=== PATIENT | female | born 1960 | race Caucasian/White ===

== ENCOUNTER → 2018-08-22 | Outpatient (CLI) | payer OTHER ==
--- NOTE | 2018-09-18 09:47 | RAD ---
DATE: 08/22/2018 EXAM: DIGITAL SCREEN BILAT W/CAD HISTORY: Routine screening COMPARISON: None available This study was interpreted with the benefit of Computerized Aided Detection (CAD). Breast Density: HETERO The breast parenchyma is heterogenously dense, which could reduce sensitivity of mammography. Breast parenchyma level C. FINDINGS: The fibroglandular tissues are quite heterogeneous. No spiculated mass or architectural distortion is seen. No suspicious microcalcifications are evident. IMPRESSION: There is no mammographic evidence of malignancy in either breast. BI-RADS CATEGORY: 1 NEGATIVE RECOMMENDED FOLLOW-UP: 12M 12 MONTH FOLLOW-UP PQRS compliance statement: Patient information was entered into a reminder system with a target due date for the next mammogram. Mammography is a sensitive method for finding small breast cancers, but it does not detect them all and is not a substitute for careful clinical examination. A negative mammogram does not negate a clinically suspicious finding and should not result in delay in biopsying a clinically suspicious abnormality. "Our facility is accredited by the [employer] Mammography Program."
== END | disposition home or self-care (01) ==
LOC: MAMMO 09:20
DX: Z12.31 Encounter for screening mammogram for malignant neoplasm of breast (principal)
CPT/HCPCS: 77067

== ENCOUNTER 2019-05-15 14:24 | Emergency (ER) | payer OTHER ==
[~2019-05-15] VITALS: Ht 162.6 cm; Wt 56.7 kg
[2019-05-15 14:25] VITALS: BP 123/73
--- NOTE | 2019-05-15 14:59 | PHYS DOC ---
Past History Past Medical History: Other Past Surgical History: Appendectomy, Spleenectomy, Other Alcohol Use: Occasionally Drug Use: None Adult General Chief Complaint Chief Complaint: CHEST PAIN HPI HPI 58-year-old female presents with chest pain, back pain, and generalized aches. She tells me that she has felt like this on and off for the last 10 days. The central chest pressure is mild in nature, but is new today. The patient has had an IL in the past. Her last stress test was about 2 years ago. She is not aware of any vessels that they are monitoring. She denies shortness of breath or diaphoresis. She has cramping back pain on top of her chronic back pain. She was feeling dizzy at home which she described as feeling off balance. This is also new for the patient. All of the symptoms may the patient anxious so she drank half a beer. She denies being a daily drinker. She has no sick contacts. She denies fever but has had chills. Review of Systems Review of Systems Constitutional: chills [] Eyes: Denies change in visual acuity, redness, or eye pain [] HENT: Denies nasal congestion or sore throat [] Respiratory: Denies cough or shortness of breath [] Cardiovascular: No additional information not addressed in HPI [] GI: Denies abdominal pain, nausea, vomiting, bloody stools or diarrhea [] : Denies dysuria or hematuria [] Musculoskeletal: Back pain and joint pain [] Integument: Denies rash or skin lesions [] Neurologic: Mild headache. Denies focal weakness or sensory changes [] Endocrine: Denies polyuria or polydipsia [] All other systems were reviewed and found to be within normal limits, except as documented in this note. Current Medications Current Medications Current Medications Medications (Trade) Dose Ordered Sig/[facility] Start Time Stop Time Status Last Admin Dose Admin Aspirin (Children'S Aspirin) 324 mg 1X ONCE 05/15/19 15:00 05/15/19 15:01 Allergies Allergies Allergies Coded Allergies Type Severity Reaction Last Updated Verified Penicillins Allergy Intermediate 05/15/19 Yes Physical Exam Physical Exam Constitutional: Well developed, well nourished, no acute distress, non-toxic appearance. [] HENT: Normocephalic, atraumatic, bilateral external ears normal, oropharynx moist, no oral exudates, nose normal. [] Eyes: PERRLA, EOMI, conjunctiva normal, no discharge. [] Neck: Normal range of motion, no tenderness, supple, no stridor. [] Cardiovascular:Heart rate regular rhythm, no murmur [] Lungs & Thorax: Bilateral breath sounds clear to auscultation [] Abdomen: Bowel sounds normal, soft, no tenderness, no masses, no pulsatile masses. [] Skin: Warm, dry, no erythema, no rash. [] Back: No tenderness, no CVA tenderness. [] Extremities: No tenderness, no cyanosis, no clubbing, ROM intact, no edema. [] Neurologic: Alert and oriented X 3, normal motor function, normal sensory function, no focal deficits noted. [] Psychologic: Affect normal, judgement normal, mood anxious. [] Current Patient Data Vital Signs Vital Signs Date Time Temp Pulse Resp B/P (MAP) Pulse Ox O2 Delivery O2 Flow Rate FiO2 05/15/19 14:25 97.9 70 19 100 Room Air EKG EKG Sinus rhythm, rate 72, normal axis, no ST elevations or depressions.[] Radiology/Procedures Radiology/Procedures [] Impressions: EXAM: Chest, single view. HISTORY: Chest pain. COMPARISON: None. FINDINGS: A frontal view of the chest is obtained. There is no infiltrate, effusion or pneumothorax. The heart is normal in size. IMPRESSION: No acute pulmonary finding. Electronically signed by: Yennifer Gleason MD (05/15/2019 3:18 PM) [facility] DICTATED AND SIGNED BY: YENNIFER GLEASON MD DATE: 05/15/19 1518 CC: JOSÉ MIGUEL CORONA DO; CHRISTY FARRELL SWATCH MAKERConradoC ~ Course & Med Decision Making Course & Med Decision Making Pertinent Labs and Imaging studies reviewed. (See chart for details) The patient was complaining asking for pain medicine. I gave her 2 mg of morphine. When the nurse went in to give it to her, she stated that that wasn't very much pain medicine. She requested more pain medicine 10 minutes later. Before I was able to go in to see the patient, she told the nurse that she wanted to leave [facility]. She was told that this could put her at risk given her chest pain, and she did not care. Incidentally, after the patient left her labs came back and were unremarkable. Her troponin was negative. She did leave AMA. [] Dragon Disclaimer Dragon Disclaimer This electronic medical record was generated, in whole or in part, using a voice recognition dictation system. Departure Departure: Impression: Primary Impression: Chest pain Additional Impression: Drug-seeking behavior Disposition: 07 AGAINST MEDICAL ADVICE Referrals: CHRISTY FARRELL SWATCH MAKER-C (PCP) Problem Qualifiers JOSÉ MIGUEL CORONA DO May 15, 2019 14:59
[2019-05-15] MEDS ORDERED: ASPIRIN 81 MG TAB.CHEW PO ONE (15:00)
[2019-05-15 15:02] LABS: BASO % 1 % (0-3); EOS % 0 % (0-3); HEMATOCRIT 35.8 % (36.0-47.0); HEMOGLOBIN 12.5 g/dL (12.0-15.5); LYMPH # 0.8 x10^3/uL (1.0-4.8); LYMPH % 16 % (24-48); MEAN CORPUSCULAR HEMOGLOBIN 34 pg (25-35); MEAN CORPUSCULAR HGB CONC 35 g/dL (31-37); MEAN CORPUSCULAR VOLUME 97 fL (79-100); MONO # 0.4 x10^3/uL (0.0-1.1); MONO % 9 % (0-9); NEUT # 3.4 x10^3uL (1.8-7.7); NEUT % 73 % (31-73); PLATELET COUNT 215 x10^3/uL (140-400); RED BLOOD COUNT 3.71 x10^6/uL (3.50-5.40); RED CELL DISTRIBUTION WIDTH 13.3 % (11.5-14.5); WHITE BLOOD COUNT 4.6 x10^3/uL (4.0-11.0)
[2019-05-15 15:13] LABS: BILIRUBIN,URINE NEG (NEG); CLARITY,URINE CLEAR; COLOR,URINE STRAW; GLUCOSE,URINE NEG (NEG); UROBILINOGEN,URINE 0.2 mg/dL (0.2 mg/dL)
[2019-05-15 15:14] LABS: BACTERIA,URINE 0 /HPF (0-FEW); NITRITE,URINE NEG (NEG); RBC,URINE 0 /HPF (0-2); SQUAMOUS EPITHELIAL CELL,UR MOD /LPF; WBC,URINE RARE /HPF (0-4)
[2019-05-15] MEDS ORDERED: MORPHINE SULFATE 2 MG/ML DISP.SYRIN. IV ONE (15:15)
[2019-05-15] MEDS ORDERED: ONDANSETRON PF 4 MG/2 ML VIAL. IV ONE (15:15)
--- NOTE | 2019-05-15 15:20 | RAD ---
EXAM: Chest, single view. HISTORY: Chest pain. COMPARISON: None. FINDINGS: A frontal view of the chest is obtained. There is no infiltrate, effusion or pneumothorax. The heart is normal in size. IMPRESSION: No acute pulmonary finding. Electronically signed by: Yennifer Gleason MD (05/15/2019 3:18 PM) [place] [id number]
[2019-05-15 15:24] LABS: ALBUMIN 3.9 g/dL (3.4-5.0); ALBUMIN/GLOBULIN RATIO 1.3 (1.0-1.7); CALCIUM 8.9 mg/dL (8.5-10.1); CREATININE 0.6 mg/dL (0.6-1.0); POTASSIUM 3.5 mmol/L (3.5-5.1); TOTAL BILIRUBIN 0.3 mg/dL (0.2-1.0); TOTAL PROTEIN 6.9 g/dL (6.4-8.2)
--- NOTE | 2019-05-15 18:01 | EKG ---
[address] [address] Test Date: 2019-05-15 Test Time: 14:36:22 Pat Name: MUMTAZ SAUER Department: Room: Gender: F Sample Stitcher: ANDREW : 1960 Requested By: JOSÉ MIGUEL CORONA Order Number: [id number] Reading MD: Measurements Intervals [place] Rate: 72 P: 75 [place]: 150 QRS: 77 QRSD: 82 T: 68 QT: 412 QTc: 453 Interpretive Statements SINUS RHYTHM NO SPECIFIC ECG ABNORMALITIES RI6.01 No previous ECG available for comparison
== END 2019-05-15 16:20 | disposition left against medical advice (07) ==
LOC: ER 14:24
DX: R07.89 Other chest pain (principal); Z76.5 Malingerer [conscious simulation]; G89.29 Other chronic pain; M54.89 Other dorsalgia; R42 Dizziness and giddiness; Z90.89 Acquired absence of other organs; Z90.81 Acquired absence of spleen; Z88.0 Allergy status to penicillin
CPT/HCPCS: 36415; 71045; 80053; 81001; 83690; 83880; 84484; 85025; 93005; 96374; 96375; 99285; J2270; J2405

== ENCOUNTER → 2021-01-05 | Outpatient (CLI) | payer OTHER ==
--- NOTE | 2021-01-06 11:56 | RAD ---
DATE: 01/05/2021 1:20 PM EXAM: MAMMO IDA JESUS ALBERTO HALL, BREAST BILATERAL HISTORY: 60-year-old woman due for bilateral mammographic screening presenting with focal tenderness in the left breast. COMPARISON: 08/22/2018 Bilateral CC and MLO views of the breasts were performed. Bilateral breast tomosynthesis was performed in CC and MLO projections. Full-field right ML view and spot magnification views of the right breast in the MLO projections were also obtained. This study was interpreted with the benefit of Computerized Aided Detection (CAD). FINDINGS: Breast Density: DENSE The breast Parenchyma is dense, which could reduce the sensitivity of mammography. Breast parenchyma level density D. Patient's area of focal tenderness is marked in the left breast with a BB marker. No mammographic correlate is apparent and no mammographic interval change is identified. Targeted ultrasound of the left breast shows no sonographic correlate to the area of focal tenderness. On the right breast in the MLO projection however, an asymmetry in the posterior right breast along the posterior nipple line is identified on tomographic image 21 of 38 that dissipated on spot compression and showed no sonographic correlate on targeted right breast ultrasound focused in the retroareolar breast. IMPRESSION: Probably benign single view asymmetry in the posterior right breast best appreciated on the tomographic MLO series as described. No mammographic or sonographic correlate to the area of patient reported focal tenderness. BI-RADS CATEGORY: 3 PROBABLY BENIGN FINDING(S)-SHORT INTERVAL FOLLOW-UP SUGGESTED RECOMMENDED FOLLOW-UP: 6M 6 MONTH FOLLOW-UP Six-month follow-up right mammogram, preferably with 3-D technique and possible targeted right breast ultrasound is recommended. The left breast should be managed clinically including biopsy if there are any clinically suspicious findings. In the absence of a clinically suspicious finding, the left breast can return to routine screening. PQRS compliance statement: Patient information was entered into a reminder system with a target due date for the next mammogram. Mammography is a sensitive method for finding small breast cancers, but it does not detect them all and is not a substitute for careful clinical examination. A negative mammogram does not negate a clinically suspicious finding and should not result in delay in biopsying a clinically suspicious abnormality. "Our facility is accredited by the [employer] Mammography Program."
== END ==
LOC: MAMMO 13:08
PROVIDERS: ATTEND Nurse Practitioner Family
DX: R92.2 Inconclusive mammogram (principal); N63.20 Unspecified lump in the left breast, unspecified quadrant
CPT/HCPCS: 76641; 77066; G0279; 77062

== ENCOUNTER → 2021-08-05 | Outpatient (CLI) | payer OTHER ==
--- NOTE | 2021-08-05 13:49 | RAD ---
PROCEDURE: MG DIAGNOSTICUNILAT MAMMO HISTORY: The patient is 60 years old and is seen for Reason: FOLLOW UP / Spl. Instructions: / Histor y: . COMPARISON: January 05, 2021 mammogram and ultrasound TECHNIQUE: CC and MLO views of right breast were obtained. Images were processed by the [employer] computer-aided detection system. DENSITY: The breast parenchyma is extremely dense, which could obscure a lesion on mammography. FINDINGS: Previously seen asymmetry within the right posterior breast is less apparent on the curre nt examination. No developing mass, suspicious calcifications or architectural distortion. IMPRESSION: 1. Previously seen asymmetry within the right posterior breast is less apparent on the current exami nation, most likely overlapping fibroglandular tissue. Recommend return to annual screening. Recommend annual screening mammograms per [employer] [employer] guidelines. Target due date of scr eening mammogram of January 05, 2022. BI-RADS category 2 Benign Patient entered into a reminder system for annual screening mammogram. Electronically signed by: Rick Klein DO (08/05/2021 1:47 PM) [id number]
== END ==
LOC: MAMMO 12:29
PROVIDERS: ATTEND Nurse Practitioner Primary Care
DX: N64.59 Other signs and symptoms in breast (principal)
CPT/HCPCS: 77065

== ENCOUNTER → 2022-01-05 | Outpatient (CLI) | payer OTHER ==
--- NOTE | 2022-01-05 14:18 | RAD ---
BILATERAL DIGITAL SCREENING 2-D AND 3-D MAMMOGRAM INDICATION: Routine screening. COMPARISON: January 05, 2021, August 22, 2018, July 2021, Interpretation was made using CAD. FINDINGS: Breast Density: The breasts are heterogeneously dense, which may obscure small masses. RIGHT BREAST: No suspicious masses, calcifications or areas of architectural distortion are seen. LEFT BREAST: An asymmetry is seen in the lower outer left breast within the anterior depth, 1.5 cm in ferior to the nipple line. This may represent a mass or dilated duct. The nipple is rolled on the lef t CC which may contribute to overlapping dense glandular parenchyma in this region. No suspicious jose a cifications or areas of distortion are seen. IMPRESSION: 1. Indeterminate left breast asymmetry. Left breast ultrasound is recommended. 2. Stable right mammogram with no imaging evidence of malignancy. ASSESSMENT: BI-RADS 0. Incomplete assessment. Additional imaging is necessary. RECOMMENDATION: Left breast ultrasound. The facility will notify the patient of the results via mail. Patient information will be entered int o the mammography reminder system with a target recall date for the next mammogram. A reminder letter will be generated by the facility. Electronically signed by: Kristin Marquez MD (01/05/2022 2:16 PM) [id number]
== END ==
LOC: MAMMO 10:15
PROVIDERS: ATTEND Nurse Practitioner Family
DX: Z12.31 Encounter for screening mammogram for malignant neoplasm of breast (principal)
CPT/HCPCS: 77063; 77067

== ENCOUNTER → 2022-02-01 | Outpatient (CLI) | payer OTHER ==
--- NOTE | 2022-02-01 13:40 | RAD ---
EXAM: US BREAST LT 02/01/2022 12:40 PM CLINICAL INDICATION: Recalled from screening mammogram for asymmetry in the left breast. COMPARISON: Screening mammogram 01/05/2022 TECHNIQUE: Focused ultrasound of the left breast was performed from 3-6 o'clock in the retroareolar region. FINDINGS: At 5:00 in the retroareolar region there is a tubular solid hypodense mass with vascularit y measuring 1.8 x 1.5 x 0.6 cm. This may be within a dilated duct. There is a normal-appearing lymph node in the left axilla. IMPRESSION: 1.8 x 1.5 x 0.6 cm intraductal mass at 5:00 in the retroareolar region. Recommend ultras ound-guided biopsy. BI-RADS Category 4: Suspicious. Recommendation: Ultrasound-guided biopsy of left breast mass. Findings and recommendations discussed by Dr. Borjas with [facility]. About 1 :35 PM on 02/01/2022. Electronically signed by: Viktoria Borjas MD (02/01/2022 1:38 PM) [place] [id number]
== END ==
LOC: US 12:26
PROVIDERS: ATTEND Nurse Practitioner Family
DX: N63.23 Unspecified lump in the left breast, lower outer quadrant (principal)
CPT/HCPCS: 76641